=== PATIENT | male | born 1955 | race African-American/Black ===

== ENCOUNTER 2020-01-27 15:12 | Emergency (ER) | payer SELFPAY ==
[~2020-01-27] VITALS: Ht 185.4 cm; Wt 90.7 kg
[2020-01-27] MEDS: FOLIC ACID 1 MG, MULTIPLE VITAMIN 10 ML, MAGNESIUM SULF SDV 50% 8 MEQ, THIAMINE INJ 100... INJ SCH ×5 (02:30)
[2020-01-28 02:54] LABS: Eosinophils # (auto) 0 10 ^3/uL (0-0.8); Nucleated Red Blood Cells % 0.1 %
[2020-01-28 02:56] LABS: Basophils # (auto) 0.1 10 ^3/uL (0-0.2); Lymphocytes # (auto) 1.1 10 ^3/uL (0.4-5.4); Monocytes # (auto) 0.9 10 ^3/uL (0-1.3)
[2020-01-28 02:59] LABS: Eosinophils % (auto) 0.1 % (0.0-7.0); Hemoglobin 9.4 g/dL (13.5-17.5); Red Blood Cells 3.07 10^6/uL (4.5-5.90)
[2020-01-28 03:02] LABS: Basophils % (auto) 0.6 % (0.0-2.0); Hematocrit 28.9 % (41.0-53.0); Lymphocytes % (auto) 6.8 % (10.0-50.0); Mean Corpuscular Hemoglobin 30.5 pg (28.0-32.0); Mean Corpuscular Hgb Conc. 32.4 g/dL (32.0-36.0); Mean Corpuscular Volume 94.1 fL (80.0-100.0); Monocytes % (auto) 5.8 % (0.0-12.0); Neutrophils # (auto) 13.4 10 ^3/uL (1.6-8.6); Neutrophils % (auto) 86.7 % (37.0-80.0); Platelet Count (auto) 561 10^3/uL (140-450); White Blood Cell 15.5 10^3/uL (4.4-10.8)
[2020-01-28 03:10] LABS: Red Cell Distribution Width 22.5 % (11.8-14.3)
[2020-01-28 03:11] LABS: Albumin 2.4 g/dL (3.4-5.0); Calcium 9.4 mg/dL (8.5-10.1); Potassium 5.2 mmol/L (3.5-5.1)
[2020-01-28 03:15] LABS: BUN/Creatinine Ratio 17.2; Bilirubin, Total 1.7 mg/dL (0.2-1.0); Total Protein 9.4 g/dL (6.4-8.2)
[2020-01-28] MEDS: FOLIC ACID 1 MG, MULTIPLE VITAMIN 10 ML, MAGNESIUM SULF SDV 50% 8 MEQ, THIAMINE INJ 100... INJ SCH ×5 (17:00)
[2020-01-29 03:52] VITALS: BP 149/78
== END 2020-01-29 09:03 | disposition home or self-care (01) ==
LOC: ER 15:12
DX: G92 Toxic encephalopathy (principal); F10.920 Alcohol use, unspecified with intoxication, uncomplicated; R45.1 Restlessness and agitation
CPT/HCPCS: 36415; 80053; 80320; 85025; 96365; 99285; J3411; J3475; J7070

== ENCOUNTER → 2021-02-13 | Emergency (ER) | payer MEDICARE, OTHER ==
[~2021-02-13] VITALS: Ht 175.3 cm; Wt 70.3 kg
[~2021-02-13] MED LIST: ONDANSETRON HCL 4 MG/2 ML VIAL IV ONE; ONDANSETRON ODT 4 MG TAB PO ONE
[2021-02-13 03:53] VITALS: BP 118/90
[2021-02-13 05:03] LABS: Basophils # (auto) 0 10 ^3/uL (0-0.2); Basophils % (auto) 0.6 % (0.0-2.0); Eosinophils # (auto) 0.2 10 ^3/uL (0-0.8); Eosinophils % (auto) 2.9 % (0.0-7.0); Hematocrit 34.8 % (41.0-53.0); Hemoglobin 11.6 g/dL (13.5-17.5); Lymphocytes # (auto) 0.7 10 ^3/uL (0.4-5.4); Lymphocytes % (auto) 11.4 % (10.0-50.0); Mean Corpuscular Hemoglobin 30.9 pg (28.0-32.0); Mean Corpuscular Hgb Conc. 33.4 g/dL (32.0-36.0); Mean Corpuscular Volume 92.5 fL (80.0-100.0); Monocytes # (auto) 0.4 10 ^3/uL (0-1.3); Monocytes % (auto) 5.9 % (0.0-12.0); Neutrophils # (auto) 4.9 10 ^3/uL (1.6-8.6); Neutrophils % (auto) 79.2 % (37.0-80.0); Red Blood Cells 3.76 10^6/uL (4.5-5.90); Red Cell Distribution Width 13.6 % (11.8-14.3); White Blood Cell 6.2 10^3/uL (4.4-10.8)
[2021-02-13 05:19] LABS: Calcium 9.6 mg/dL (8.5-10.1); Potassium 4.1 mmol/L (3.5-5.1)
[2021-02-13 05:26] LABS: BUN/Creatinine Ratio 19.7; Bilirubin, Total 0.5 mg/dL (0.2-1.0); Total Protein 8.5 g/dL (6.4-8.2)
== END | disposition home or self-care (01) ==
LOC: EDUNIT# 03:34 → EDBD 03:35 → ER 03:35
DX: R07.89 Other chest pain (principal); F10.129 Alcohol abuse with intoxication, unspecified
CPT/HCPCS: 36415; 80053; 83880; 84484; 85025; 93005; 99284; Q0162